=== PATIENT | female | born 1970 | race Hispanic/Latino ===

== ENCOUNTER → 2018-05-10 | Outpatient (CLI) | payer OTHER ==
--- NOTE | 2018-05-10 15:20 | Diagnostic Imaging Report ---
EXAM: Bone mineral density study 05/10/2018 2:28 PM INDICATION: \S\MENOPAUSE COMPARISON: Baseline DEXA 02/05/2016 FINDINGS: Evaluation of the left hip and lumbar spine was performed. The study is technically adequate. The patient's fracture risk is compared to an age-matched control. The left femoral neck total bone mineral density is 0.871 gm/cm2, the T-score is 0.0 and the total Z-score is 0.6. The total left hip bone mineral density is 1.003 gm/cm2, the T-score is 0.3 and the total Z-score is 0.7. The total left hip BMD change versus baseline is 1%. The lumbar spine total bone mineral density is 0.94 gm/cm2, the T-score is -1.0, and the Z-score is -0.3. The lumbar spine BMD change versus baseline is -3.2%. IMPRESSION: Bone mineralization by WHO Classification is normal, the fracture risk is not increased. Signed by: Dr. Gui Ragland MD on 05/10/2018 3:17 PM
== END ==
LOC: MAMMO 14:14
PROVIDERS: ATTEND Obstetrics & Gynecology
DX: Z12.31 Encounter for screening mammogram for malignant neoplasm of breast (principal); Z78.0 Asymptomatic menopausal state
CPT/HCPCS: 77067; 77080

== ENCOUNTER 2019-01-28 13:52 | Emergency (ER) | payer OTHER ==
[~2019-01-28] VITALS: Ht 157.5 cm; Wt 55.8 kg
--- OUTSIDE RECORDS SUMMARY | 2019-01-28 13:55 | XMS REPORT ---
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
--- OUTSIDE RECORDS SUMMARY | 2019-01-28 13:55 | XMS REPORT ---
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
--- OUTSIDE RECORDS SUMMARY | 2019-01-28 13:55 | XMS REPORT ---
Author Author Ricardo Flores Organization [employer] Address Unknown Phone Unavailable Care Team Providers Care Prison Keeper Name Role Phone Ricardo Flores CP Unavailable Allergies, Adverse Reactions, Alerts Substance Reaction Event Type N.K.D.A. 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 Medications Medication Code System Code Instructions Start Date End Date Status Dosage Methotrexate NDC 0 2.5mg Orally Once a week Aug 23, 2018 December 21, 2018 Active 4 tab x 1wk and then take 6 tabs once a week Folic Acid ND 52163968043 1 MG Orally Once a day Aug 23, 2018 December 21, 2018 Active 1 tablet Meloxicam ND 78524317688 15 MG Orally Once a day Active 1 tablet Estradiol [facility] [address]-19 1 MG Orally 1-2 times a day Active 1 tablet PredniSONE ND 89787733891 5 MG Orally Once a day Aug 04, 2018 Active 1 tablet as needed Vital Signs Date/Time: Aug 23, 2018 BMI 22.82 Index Weight 124.8 lbs Height 62 in Temperature 97.6 F Cardiac Monitoring Heart Rate 60 /min Blood Pressure Diastolic 64 mm Hg Blood Pressure Systolic 108 mm Hg Results No Known Results Summary Purpose [employer] Submission
--- OUTSIDE RECORDS SUMMARY | 2019-01-28 13:55 | XMS REPORT | Continuity of Care Document ---
Author Author [facility] Address Unknown Phone Unavailable Problems Problem Status Onset Date Classification Date Reported Comments Source Joint pain Active Problem 12/22/2018 Castillo Lizet Epicondylitis, lateral, right Active Problem 12/22/2018 Castillo Hinds HLA-B27 spondyloarthropathy Active Problem 12/22/2018 Castillo Lizet Psoriatic spondylitis Active Problem 12/22/2018 Castillo Hinds Encounter for drug therapy Active Diagnosis 11/28/2018 Castillo Hinds HLA B27 positive Active Diagnosis 08/29/2018 Castillo Hinds Medications Medication Details Route Status Patient Instructions Ordering Provider Order Date Source Xeljanz 1 tab orally Active 5mg orally BID Sandra 11/23/2018 Castillo Hinds Leflunomide 1 tablet Orally Active 20 MG Orally Once a day Sandra 11/03/2018 Castillo Hinds Methotrexate 6 tablets Orally Active 2.5mg Orally Once a week Sandra 08/23/2018 Castillo Hinds Folic Acid 1 tablet Orally Active 1 MG Orally Once a day Sandra 08/23/2018 Castillo Hinds Methotrexate 4 tab x 1wk and then take 6 tabs once a week Orally Active 2.5mg Orally Once a week Sandra 08/23/2018 Castillo Hinds PredniSONE 1 tablet as needed Orally Active 5 MG Orally Once a day prn Sandra 08/04/2018 Castillo Hinds Estradiol 1 tablet Orally Active 1 MG Orally 1-2 times a day Sandra Castillo Hinds Meloxicam 1 tablet Orally Active 15 MG Orally Once a day Sandra Castillo Hinds Estradiol 1 tablet Orally Active 1 MG Orally 1-2 times a day Sandra Castillo Hinds Allergies, Adverse Reactions, Alerts Substance Category Reaction Severity Reaction type Status Date Reported Comments Source N.K.D.A. Adverse Reaction Info Not Available Adverse Reaction Active 08/23/2018 [facility]illo Hinds Methotrexate Adverse Reaction Info Not Available Adverse Reaction Active 11/23/2018 [facility]illo Hinds Immunizations Immunization Date Given Site Status Last Updated Comments Source Results Order Name Results Value Reference Range Date Interpretation Comments Source Vital Signs Vital Sign Value Date Comments Source Weight 129.2 11/23/2018 [facility]s Height 62 11/23/2018 [facility] Temperature Oral (F) 98.4 F 11/23/2018 [facility] Heart Rate 68 11/23/2018 [facility] Diastolic (mm Hg) 60 11/23/2018 [facility] Systolic (mm Hg) 100 11/23/2018 [facility] Weight 124.8 08/23/2018 [facility] Hind[facility] Height 62 08/23/2018 [facility] Temperature Oral (F) 97.6 F 08/23/2018 [facility]s Heart Rate 60 08/23/2018 [facility] Diastolic (mm Hg) 64 08/23/2018 [facility] Hinds Systolic (mm Hg) 108 08/23/2018 Castillo Hinds Encounters Location Location Details Encounter Type Encounter Number Reason For Visit Attending Provider ADM Date DC Date Status Source Procedures Procedure Code Date Perfomer Comments Source
--- OUTSIDE RECORDS SUMMARY | 2019-01-28 13:55 | XMS REPORT ---
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 Active Assessment Encounter for drug therapy Z79.899 Active Problem Epicondylitis, lateral, right M77.11 Active Medications Medication Code System Code Instructions Start Date End Date Status Dosage Xeljanz NDC 0 5mg orally BID Nov 23, 2018 Active 1 tab Methotrexate NDC 90831220243 2.5mg Orally Once a week Aug 23, 2018 Nov 23, 2018 Inactive 6 tablets PredniSONE NDC 08262370917 5 MG Orally Once a day prn Aug 04, 2018 Active 1 tablet as needed Estradiol NDC 81502527110 1 MG Orally 1-2 times a day Active 1 tablet Leflunomide NDC 70244561312 20 MG Orally Once a day Nov 03, 2018 Active 1 tablet Folic Acid NDC 80184008685 1 MG Orally Once a day Aug 23, 2018 December 21, 2018 Active 1 tablet Vital Signs Date/Time: Nov 23, 2018 BMI 23.63 Index Weight 129.2 lbs Height 62 in Temperature 98.4 F Cardiac Monitoring Heart Rate 68 /min Blood Pressure Diastolic 60 mm Hg Blood Pressure Systolic 100 mm Hg Results No Known Results Summary Purpose eClinicalWorks Submission
--- OUTSIDE RECORDS SUMMARY | 2019-01-28 13:56 | XMS REPORT ---
[facility] Address Unknown Phone Unavailable Care Team Providers Care Body Worker Name Role Phone LANI BERNARD Unavailable Unavailable Problems This patient has no known problems. Allergies, Adverse Reactions, Alerts This patient has no known allergies or adverse reactions. Medications This patient has no known medications. Results Test Description Test Time Test Comments Text Results Atomic Results Result Comments BONE DXA DUAL ENERGY 2018-05-10 15:15:00 [place] [address] Patient Name: ROSARIO BARKSDALE MR #: [id number] : 1970 Age/Sex: 47/F Req #: [id number] [facility] Physician: Ordered by: LANI BERNARD MD Report #: [id number] Location: [facility] Room/Bed: Procedure: [id number] DX/BONE DXA DUAL ENERGY Exam Date: Exam Time: REPORT STATUS: Signed EXAM: Bone mineral density study 05/10/2018 2:28 PM INDICATION: COMPARISON: Baseline DEXA 02/05/2016 FINDINGS: Evaluation of the left hip and lumbar spine was performed. The study is technically adequate. The patient's fracture risk is compared to an age-matched control. The left femoral neck total bone mineral density is 0.871 gm/cm2, the T-score is 0.0 and the total Z-score is 0.6. The total left hip bone mineral density is 1.003 gm/cm2, the T-score is 0.3 and the total Z-score is 0.7. The total left hip BMD change versus baseline is 1%. The lumbar spine total bone mineral density is 0.94 gm/cm2, the T-score is -1.0, and the Z-score is -0.3. The lumbar spine BMD change versus baseline is -3.2%. IMPRESSION: Bone mineralization by WHO Classification is normal, the fracture risk is not increased. Signed by: Dr. Gui Zavala MD on 05/10/2018 3:17 PM Dictated By: GUI ZAVALA MD 16 Transcribed By: GERONIMO on 05/10/181516 COPY TO: LANI BERNARD MD MAMMOGRAPHY DIGITAL SCR BILAT 2018-05-10 15:10:00 [place] [address] Patient Name: ROSARIO BARKSDALE MR #: [id number] : 1970 Age/Sex: 47/F Req #: [id number] [facility] Physician: Ordered by: LANI BERNARD MD Report #: [id number] Location: MAMMO Room/Bed: Procedure: [id number] MG/MAMMOGRAPHY DIGITAL SCR BILAT Exam Date: 05/10/18 Exam Time: 1416 REPORT STATUS: Signed #[id number] - MGSCRBIL #BILATERAL DIGITAL SCREENING MAMMOGRAM WITH CAD: 05/10/2018 CLINICAL: Routine screening. Comparison is made to exams dated: 02/10/2017 mammogram and 02/05/2016 mammogram - [facility]. Current study contains 4 films. The tissue of both breasts is heterogeneously dense. This may lower the sensitivity of mammography. Current study was also evaluated with a Computer Aided Detection (CAD) system. There are benign calcifications in the left breast. There also are post operative findings in the left breast with a scar marker present. No significant masses, calcifications or other findings are seen in either breast. There has been no significant interval change. IMPRESSION: BENIGN There is no mammographic evidence of malignancy. A 1 year screening mammogram is recommended. The patient will be notified by letter of the results. Sofy Bobo Jr., D.O. cw/:05/25/2018 13:56:30 Charging Operator: Karen TAFOYA)(Pierce), [facility] letter sent: Compared to Prior B9 Mammogram BI-RADS: 2 Benign Dictated By: SOFY BOBO DO [id number] Transcribed By: GAYLA on 05/25/18 2720 COPY TO: LANI BERNARD MD
[2019-01-28] MEDS ORDERED: SODIUM CHLORIDE 0.9% 1000ML 1,000 ML IV STA (14:23)
[2019-01-28] MEDS ORDERED: KETOROLAC TROMETHAMINE 30 MG/ML VIAL IV NR (14:30)
[2019-01-28 14:52] LABS: BASOPHILS % 0.2 % (0.0-1.0); EOSINOPHILS % 0.3 % (0.0-6.0); HEMATOCRIT 36.5 % (34.2-44.1); HEMOGLOBIN 12.1 g/dL (12.0-16.0); LYMPHOCYTES # (AUTO) 1.6 (1.0-3.2); LYMPHOCYTES % 25.7 % (18.0-39.1); MEAN CORPUSCULAR HEMOGLOBIN 31.3 pg (28-32); MEAN CORPUSCULAR HGB CONC 33.2 g/dL (31-35); MEAN CORPUSCULAR VOLUME 94.6 fL (81-99); MONOCYTES # (AUTO) 0.5 (0.2-0.8); MONOCYTES % 7.4 % (4.4-11.3); NEUTROPHILS % 66.1 % (38.7-80.0); PLATELET COUNT 278 x10e3/uL (140-360); RED BLOOD COUNT 3.86 x10e6/uL (3.6-5.1); RED CELL DISTRIBUTION WIDTH 13.6 % (11.7-14.4)
[2019-01-28 15:01] LABS: BILIRUBIN,URINE NEGATIVE (NEGATIVE); CLARITY,URINE CLEAR (CLEAR); COLOR,URINE YELLOW (YELLOW); KETONES,URINE NEGATIVE (NEGATIVE); LEUKOCYTE ESTERASE ,URINE NEGATIVE (NEGATIVE); NITRITE,URINE NEGATIVE (NEGATIVE); PROTEIN,URINE DIPSTICK NEGATIVE (NEGATIVE); URINE UROBILINOGEN 0.2 mg/dL (0.2 - 1)
[2019-01-28 15:08] LABS: ANION GAP 11.8 mmol/L (8-16); BLOOD UREA NITROGEN 9 mg/dL (7-26); BUN/CREATININE RATIO 11 (6-25); CALCIUM 9.8 mg/dL (8.4-10.2); CARBON DIOXIDE 26 mmol/L (22-29); CHLORIDE 107 mmol/L (98-107); EST GLOMERULAR FILTRATION RATE > 60 ML/MIN (60-); GLUCOSE 76 mg/dL (74-118); POTASSIUM 3.8 mmol/L (3.5-5.1); SODIUM 141 mmol/L (136-145)
[2019-01-28 15:20] LABS: BACTERIA,URINE FEW /HPF; EPITHELIAL CELLS,URINE FEW /LPF
--- NOTE | 2019-01-28 15:47 | Diagnostic Imaging Report ---
EXAM: CT Abdomen and Pelvis WITHOUT contrast INDICATION: Back pain, evaluate for renal stone. COMPARISON: None. TECHNIQUE: Abdomen and pelvis were scanned utilizing a multidetector helical scanner from the lung base to the pubic symphysis without administration of IV contrast. Absence of intravenous contrast decreases sensitivity for detection of focal lesions and vascular pathology. Coronal and sagittal reformations were obtained. Stone protocol is performed. IV CONTRAST: None. ORAL CONTRAST: None RADIATION DOSE: Total DLP: 219.8 mGy*cm Estimated effective dose: (DLP x 0.015 x size factor) mSv COMPLICATIONS: None FINDINGS: LINES and TUBES: None. LOWER THORAX: Unremarkable HEPATOBILIARY: Limited evaluation in the absence of IV contrast. No evidence of focal hepatic lesions. No biliary ductal dilation. GALLBLADDER: Decompressed. No radio-opaque stones or sludge. No wall thickening. SPLEEN: No splenomegaly. PANCREAS: Limited evaluation in the absence of IV contrast. No evidence of focal masses or ductal dilatation. ADRENALS: No adrenal nodules KIDNEYS/URETERS: No hydronephrosis. No evidence of solid mass. No evidence of stone. There is a partially exophytic right midpole renal cyst, measuring up to 2.8 cm. GI TRACT: No abnormal distention, wall thickening, or evidence of bowel obstruction. Appendix is normal. PELVIC ORGANS/BLADDER: The bladder is unremarkable in appearance. Bilateral calcified phleboliths. Status post hysterectomy. LYMPH NODES: No lymphadenopathy. VESSELS: Scattered mild atherosclerotic changes within the abdominal aorta. PERITONEUM / RETROPERITONEUM: No free air or fluid. BONES: Unremarkable. SOFT TISSUES: Unremarkable. IMPRESSION: No evidence of renal stone. No acute abnormality on non-contrast CT. Signed by: Dr. Jennifer Delgado MD on 01/28/2019 3:44 PM
[2019-01-28] MEDS ORDERED: HYDROCODONE/APAP 10MG-325MG TAB PO NR (16:45)
== END 2019-01-28 16:35 | disposition home or self-care (01) ==
LOC: ER 13:52
DX: M54.5 Low back pain (principal); S39.012A Strain of muscle, fascia and tendon of lower back, initial encounter; M19.90 Unspecified osteoarthritis, unspecified site
CPT/HCPCS: 36415; 74176; 80048; 81001; 84702; 85025; 99284; J1885; J7030

== ENCOUNTER → 2019-07-09 | Outpatient (CLI) | payer OTHER ==
--- NOTE | 2019-07-13 09:16 | Diagnostic Imaging Report ---
#[id number] - MGSCRBIL #BILATERAL DIGITAL SCREENING MAMMOGRAM WITH CAD: 07/09/2019 CLINICAL: Routine screening. Comparison is made to exams dated: 05/10/2018 mammogram, 02/05/2016 mammogram, 02/10/2017 mammogram and 01/15/2015 mammogram - [facility]. The tissue of both breasts is heterogeneously dense. This may lower the sensitivity of mammography. Current study was also evaluated with a Computer Aided Detection (CAD) system. There are benign calcifications in the left breast. No significant masses, calcifications, or other findings are seen in either breast. There has been no significant interval change. IMPRESSION: BENIGN There is no mammographic evidence of malignancy. A 1 year screening mammogram is recommended. The patient will be notified by letter of the results. GABRIELLA teresa/veronica:07/10/2019 16:34:08 Ship Propeller Finisher: Karen ELI(R)(M), [facility] letter sent: Compared to Prior B9 Mammogram BI-RADS: 2 Benign
== END ==
LOC: MAMMO 15:54
PROVIDERS: ATTEND Obstetrics & Gynecology
DX: Z12.31 Encounter for screening mammogram for malignant neoplasm of breast (principal)
CPT/HCPCS: 77067

== ENCOUNTER → 2020-10-07 | Outpatient (CLI) | payer OTHER | LOC: MAMMO 13:33 | PROVIDERS: ATTEND Obstetrics & Gynecology | DX: Z12.31 Encounter for screening mammogram for malignant neoplasm of breast (principal) | CPT/HCPCS: 77067 ==

== ENCOUNTER → 2022-03-30 | Outpatient (CLI) | payer OTHER | LOC: MAMMO 13:04 | PROVIDERS: ATTEND Obstetrics & Gynecology | DX: Z12.31 Encounter for screening mammogram for malignant neoplasm of breast (principal) | CPT/HCPCS: 77067 ==

== ENCOUNTER → 2024-05-01 | Outpatient (REF) | payer OTHER ==
[~2024-05-01] MED LIST: CEPHALEXIN500 MG PO; MECLIZINE HCL25 MG PO
== END ==
LOC: MAMMO 13:43
PROVIDERS: ATTEND Obstetrics & Gynecology
DX: Z12.31 Encounter for screening mammogram for malignant neoplasm of breast (principal)
CPT/HCPCS: 77067

== ENCOUNTER → 2025-04-30 | Outpatient (REF) | payer OTHER | LOC: MAMMO 12:32 | PROVIDERS: ATTEND Obstetrics & Gynecology | DX: Z12.31 Encounter for screening mammogram for malignant neoplasm of breast (principal) | CPT/HCPCS: 77067 ==